=== PATIENT | male | born 1975 | race Caucasian/White ===

== ENCOUNTER 2018-04-30 11:00 | Outpatient (CLI) | payer MEDICAID, SELFPAY | END 2018-04-30 11:01 | PROVIDERS: PCP Nurse Practitioner Family; Visit Provider Nurse Practitioner Family | DX: B20 Human immunodeficiency virus [HIV] disease (principal); Z79.899 Other long term (current) drug therapy; F41.1 Generalized anxiety disorder; F43.10 Post-traumatic stress disorder, unspecified; F51.5 Nightmare disorder; F29 Unspecified psychosis not due to a substance or known physiological condition; F12.980 Cannabis use, unspecified with anxiety disorder | CPT/HCPCS: 99214 ==

== ENCOUNTER 2018-05-11 12:46 | Outpatient (CLI) | payer MEDICAID, SELFPAY ==
--- NOTE | 2018-05-11 13:00 | NS.NUTBLAN_ITS ---
Rufino presents for nutritional counseling for weight management. She has come several times last year but recently has cut down on cigarettes. She has only gained 5 pounds since last year. Acknowledged that her timing is excellent to start focusing on weight before it gets out of control. She is 67 and 228 lbs. today. Her BMI is 33.5 kg/m2 c/w class 1 obesity. She has started setting up step goals using her phone. I showed her an lesia to track her food intake and we set that up. She will set some goals with the Lose it lesia and her step counting lesia and will return in three weeks on the day of [employer] go so that she can get veggies also. At that time we will evaluate her progress on her action plans and continue with nutrition care planning. Thank you for the referral.
== END 2018-05-11 12:47 ==
PROVIDERS: PCP Nurse Practitioner Family; Visit Provider Dietitian, Registered
DX: E66.8 Other obesity (principal); Z68.30 Body mass index [BMI] 30.0-30.9, adult; Z71.3 Dietary counseling and surveillance
CPT/HCPCS: 97802

== ENCOUNTER 2018-05-15 12:41 | Outpatient (CLI) | payer MEDICAID, SELFPAY ==
[2018-05-15 13:21] LABS: Hemoglobin A1C 5.7 % (4.5-6.2)
[2018-05-15 13:52] LABS: ALT 34 U/L (12-78); AST 20 U/L (15-37); Alkaline Phosphatase 90 U/L (46-116); Anion Gap 5.7 mmol/L (3-11); BUN 9 mg/dL (7-18); Bilirubin, Total 0.4 mg/dL (0.2-1.0); CO2 26.3 mmol/L (21.0-32.0); CREATININE 1.16 mg/dL (0.70-1.30); Calcium 8.9 mg/dL (8.5-10.1); Chloride 102 mmol/L (98-107); Glucose 124 mg/dL (70-100); Potassium 3.9 mmol/L (3.5-5.1); Sodium 134 mmol/L (136-145); Total Protein 7.2 g/dL (6.4-8.2)
[2018-05-16 12:29] LABS: Syphilis Serology (RPR) Negative (Negative)
[2018-05-17 14:58] LABS: HIV-1 RNA Quantification Undetected copies/mL (UNDECT)
== END 2018-05-15 13:01 ==
PROVIDERS: PCP Nurse Practitioner Family; Visit Provider Nurse Practitioner Family
DX: B20 Human immunodeficiency virus [HIV] disease (principal); Z79.899 Other long term (current) drug therapy; R73.01 Impaired fasting glucose
CPT/HCPCS: 36415; 80053; 87536; 83036; 86592